=== PATIENT | female | born 1985 | race African-American/Black ===

== ENCOUNTER 2019-04-17 21:56 | Emergency (ER) | payer MEDICAID ==
[~2019-04-17] VITALS: Ht 165.1 cm; Wt 67.4 kg
[2019-04-17] MEDS ORDERED: IBUPROFEN 600MG TABLET PO STA (23:46)
[2019-04-18] MEDS ORDERED: BACITRACIN ZINC OINT UDPKT TOP ONE
[2019-04-18] MEDS ORDERED: LIDOCAINE HCL/PF 1% 10 MG/ML 5ML VIAL IJ ONE
[2019-04-18 00:39] VITALS: BP 119/76
== END 2019-04-18 00:40 | disposition home or self-care (01) ==
LOC: ER 21:56
DX: S61.412A Laceration without foreign body of left hand, initial encounter (principal); W25.XXXA Contact with sharp glass, initial encounter; Y93.89 Activity, other specified; Y92.89 Other specified places as the place of occurrence of the external cause; Y99.8 Other external cause status
CPT/HCPCS: 12001; 81025; 99283; J3490; Z7610